=== PATIENT | male | born 1950 | race Caucasian/White ===

== ENCOUNTER 2017-08-07 20:57 | Emergency (ER) | payer MEDICARE ==
[~2017-08-07] VITALS: Ht 180.3 cm; Wt 94.3 kg
[2017-08-07] MEDS ORDERED: KEFLEX 500MG.500 MG PO (21:31)
[2017-08-07 21:36] VITALS: BP 135/88
--- NOTE | 2017-08-07 21:36 | Emergency Room Report ---
History of Present Illness Time Seen by [id number] Presenting Problem in Triage Pt arrived:Wheelchair Presenting Problem:LACERATION TO LOWER LEFT ANKLE, CUT WITH A STRAIGHT BLADE KNIFE WHILE SKINNING A DEER. 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 N Clinical Suspician of Infection? N Mental Status: 1 - Regular (Normal Baseline) Sepsis Risk:Possible Sepsis Risk Have you (or family members/close friends) recently traveled outside the [place]? N If Yes, where/when: Have you had exposure to infectious disease within the past month? N TB? Other? Specify: Source patient, RN notes reviewed, family, old records Exam Limitations no limitations Comment laceration lt lower leg as noted above Cardiac Chest Pain Chest pain indicative of cardiac No Timing/Duration this evening Severity moderate ALLERGIES Coded Allergies: No Known Drug Allergies (08/07/17) Uncoded Allergies: INGREDIENT: NO KNOWN - NO KNOWN DRUG ALLERGY (11/30/07) History Medical History General Angina: No MO: No Hypertension? No Hyperlipidemia? No CHF? No COPD? Yes Asthma? No Hernia? Yes CVA? No Seizures? No Diabetes? No UTI? No Stones? No GB Disease: No Hepatitis? No Cataracts? No Glaucoma? No MRSA? No TB? 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 Respiratory denies cough, denies shortness of breath, denies wheezing Cardiovascular denies chest pain, denies syncope Gastrointestinal denies diarrhea Genitourinary denies: dysuria, frequency, hesitancy, hematuria. Musculoskeletal denies back pain, denies joint pain, denies joint swelling, denies neck pain Skin see HPI, denies rash, other Psychiatric/Neurological denies headache, denies seizure Physical Exam Vital Signs Vital Signs Date Time Temp Pulse Resp B/P Pulse O2 O2 Flow FiO2 Ox Delivery Rate 08/07 2102 98.4 105 20 135/88 96 - WBC >12,000 or <4,000 or 10% bands? 2 or more SIRS Criteria Met? B/P:135/88 MAP:103 Creatinine >2.0? UA output<0.5ml/kg/hr for 2 hrs? Platelet count >100,000? Lactate >2.0mmol/1? INR >1.2 or PTT > than 60 sec? Evidence of Organ Dysfunction? Provider documented clinical suspician of infection? N Sepsis Criteria Count: 2 Sepsis Risk: Possible Sepsis Risk General Appearance no apparent distress Eye Exam - bilateral eye PERRL, bilateral eye EOMI Ear, Nose, Throat normal ENT inspection Neck supple Respiratory Status No: respiratory distress. 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 No Results/Orders Current Medication Orders Sig/Boni Start time Last Medication Dose Route Stop Time Status Admin Diphtheria/Pertussis/ 0 .STK-MED ONE 08/07 2122 DC Tetanus Vacc IM Lidocaine HCl 0 .STK-MED ONE 08/07 2118 DC .ROUTE Procedures Laceration/Wound Repair Laceration/Wound Repair Risks/benefits discussed with pt/guardian? Yes Tetanus status not up to date Wound Location lower leg Wound Length (cm) 1 Wound's Depth, Shape sucutaneous tissue Wound Explored no FB identified Risk of retained FB explained to pt/guardian? Yes Irrigated w/ Saline (ccs) 0 Wound Prep Hibiclens, Saline Anesthesia 1% Lidocaine, Local Volume Anesthetic (ccs) 2 Wound Debrided none Wound Repaired With sutures Suture Size/Type 4:0, Ethilon Layer Closure No Total Number Sutures 5 Sterile Dressing Applied Yes Splint Applied No Sling Applied No Departure Departure Time of Disposition 2129 Disposition DC Home or Self Care(routine) Clinical Impression Primary Impression: Leg laceration Qualifiers: Encounter type: initial encounter Laterality: left Qualified Code: S81.812A - Laceration without foreign body, left lower leg, initial encounter Condition STABLE Patient Instructions DI for Laceration Repair Additional Instructions suture out 10 days and recheck if any problems Discharge Counseling Counseled pt/family regarding diagnosis, follow up needs Prescriptions Current Visit Scripts CEPHALEXIN (Keflex 500MG Capsule) 500 MG PO Q8H #30 CAP ED Critical Care Critical Care No at [id number]
--- OUTSIDE RECORDS SUMMARY | 2017-08-08 22:40 | External Medical Summary Rpt | CCD ---
Author Author [employer] Organization [employer] Address Unknown Phone Unavailable Purpose Continuity of Care Document - through 2016
--- OUTSIDE RECORDS SUMMARY | 2017-08-08 22:40 | External Medical Summary Rpt ---
Author Author [facility] Organization [facility] Address Unknown Phone Unavailable Care Team Providers Care Financial Services Counselor Name Role Phone NIMIHSA (REF) PCP [phone] Encounter [facility] [id number] Date(s): 01/08/17 - 01/08/17 [facility] [address] [place] [address]- [phone] Discharge Disposition: OP Self Care or Home Attending Physician: STEPHANIE BANSAL (REF), JESSICA Admitting Physician: STEPHANIE BANSAL (REF), JESSICA Referring Physician: STEPHANIE BANSAL (REF), JESSICA Reason for Visit COUGH Vital Signs No data available for this section Problem List No data available for this section Allergies, Adverse Reactions, Alerts No data available for this section Medications No data available for this section Results No data available for this section Immunizations No data available for this section Procedures No data available for this section Social History No data available for this section Assessment and Plan No data available for this section Hospital Discharge Instructions No data available for this section
--- OUTSIDE RECORDS SUMMARY | 2017-08-08 22:40 | External Medical Summary Rpt | CCD ---
Author Author , PAULINO BOB Address Unknown Phone [email or web address] Purpose Continuity of Care Document - through 2016
--- OUTSIDE RECORDS SUMMARY | 2017-08-08 22:40 | External Medical Summary Rpt ---
Author Author [facility] Organization [facility] Address Unknown Phone Unavailable Care Team Providers Care Press Tender Smoke Signal Name Role Phone NIMISHA (REF) PCP [phone] Encounter [facility] [id number] Date(s): 01/08/17 - 01/08/17 [facility] [address] [place] [address]- [phone] Discharge Disposition: OP Self Care or Home [...]
--- OUTSIDE RECORDS SUMMARY | 2017-08-08 22:40 | External Medical Summary Rpt | CCD ---
Author Author , PAULINO BOB Address Unknown Phone [email or web address] Purpose Continuity of Care Document - through 2016
--- OUTSIDE RECORDS SUMMARY | 2017-08-08 22:41 | External Medical Summary Rpt | CCD ---
Author Author , [facility] Organization [facility] Address Unknown Phone [email or web address] Immunization Name Date Rout CVX Reac Dose Comm Prov Is Faci e tion ent ider Refu lity Give sed n Infl 08-0 Intr 150 0.5 Hist [facility] No RITE uenz 2-20 amus mL oric YAEL AID0 a 17 cula al AYMA 3938 Quad r Info N Inj rmat ion - Sour ce Unsp ecif ied Zost 10-2 Subc 121 1 mL Hist K[facility]AF No RITE er 9-20 utan oric YAEL AID0 16 eous al AYMA 3938 Info N rmat ion - Sour ce Unsp ecif ied
--- OUTSIDE RECORDS SUMMARY | 2017-08-08 22:41 | External Medical Summary Rpt | CCD ---
Author Author , [facility]ULINO Organization [facility] Address Unknown Phone [email or web address] Immunization Name Date Rout CVX Reac Dose [...]
--- OUTSIDE RECORDS SUMMARY | 2017-08-08 22:41 | External Medical Summary Rpt ---
Author Author [facility] Mcpherson, [employer] Organization [employer] Address Unknown Phone Unavailable
== END 2017-08-07 21:45 | disposition home or self-care (01) ==
LOC: ER 20:57
PROC: 0HQLXZZ Repair Left Lower Leg Skin, External Approach (ICD-10-PCS; principal; 2017-08-07)
DX: S81.812A Laceration without foreign body, left lower leg, initial encounter (principal); Z23 Encounter for immunization; J44.9 Chronic obstructive pulmonary disease, unspecified; W26.0XXA Contact with knife, initial encounter; Y92.019 Unspecified place in single-family (private) house as the place of occurrence of the external cause